=== PATIENT | male | born 1980 | race Caucasian/White ===

== ENCOUNTER 2017-08-12 06:03 | Day surgery (SDC) | payer MEDICARE, MEDICAID ==
[~2017-08-12] VITALS: Wt 101.0 kg
[2017-08-12] MEDS ORDERED: DESYREL 50MG50 MG PO (06:14)
[2017-08-12] MEDS ORDERED: ATARAX50 MG PO (06:15)
[2017-08-12] MEDS ORDERED: COLACE 100100 MG/CAP PO (06:15)
[2017-08-12] MEDS ORDERED: MIRALAX PA17 GM/Dose PO (06:15)
[2017-08-12 08:34] LABS: BASO % 0.5 % (0.0-2.0); EOS # 0.3 (0.0-0.7); GRAN # 3.2 (1.4-6.5); GRAN % 39.2 % (42.2-75.2); HEMATOCRIT 44.2 % (42.0-52.0); HEMOGLOBIN 15.1 g/dl (13.5-18.0); LYMPH # 4.2 (1.2-3.4); LYMPH % 50.3 % (20.0-51.0); MEAN CELL VOLUME 86 fl (80.0-100.0); MEAN CORPUSCULAR HEMOGLOBIN 29 pg (27.0-31.0); MEAN CORPUSCULAR HGB CONC 34 g/dl (33.0-37.0); MONO # 0.6 (0.1-0.6); MONO % 6.8 % (1.7-9.3); PLATELET COUNT 238 K/mm3 (130-400); RED BLOOD COUNT 5.13 M/mm3 (4.20-5.60); REDCELL DISTRIBUTION WIDTH-CV 13.1 % (11.5-14.5)
[2017-08-12 08:43] LABS: ALBUMIN 4.2 gm/dL (3.5-5.0); BILIRUBIN,TOTAL 0.5 mg/dL (0.0-1.0); CALCIUM 9.1 mg/dL (8.4-10.2); CREATININE, serum 0.88 mg/dL (0.66-1.25); TOTAL PROTEIN 7.5 gm/dL (6.4-8.2)
[2017-08-12 09:14] LABS: THYROID STIMULATING HORMONE 4.5 uIU/mL (0.465-4.680)
[2017-08-12 11:20] VITALS: BP 125/74; PULSE 84; TEMP 97.2
[2017-08-12 11:58] VITALS: BP 127/82; PULSE 91; TEMP 97.8
== END 2017-08-12 12:00 | disposition home or self-care (01) ==
LOC: SDCO 06:03
PROVIDERS: Internal Medicine
DX: K02.9 Dental caries, unspecified (principal); E03.9 Hypothyroidism, unspecified; K05.6 Periodontal disease, unspecified; F90.9 Attention-deficit hyperactivity disorder, unspecified type; J45.909 Unspecified asthma, uncomplicated; K06.1 Gingival enlargement; E78.00 Pure hypercholesterolemia, unspecified; J30.9 Allergic rhinitis, unspecified; G47.00 Insomnia, unspecified; F79 Unspecified intellectual disabilities; Z88.8 Allergy status to other drugs, medicaments and biological substances
CPT/HCPCS: J0690; J2250; J2704; J3010; J7120